=== PATIENT | female | born 2000 | race Caucasian/White ===

== ENCOUNTER 2021-06-27 16:56 | Inpatient (IN) | payer OTHER ==
[~2021-06-27] VITALS: Ht 157.5 cm; Wt 61.2 kg
--- NOTE | 2021-06-27 17:10 | NUR ---
TO ER BED 1, C/O RLQ ABD PAIN +N/V -DIARRHEA STARTED YESTERDAY, AAOX3, BREATHING EVEN AND NON LABORED, CONNECTED TO MONITOR, AWAITING MD LAND
[2021-06-27] MEDS ORDERED: ONDANSETRON HCL/PF 4 MG/2 ML VIAL ONE (17:25)
[2021-06-27] MEDS ORDERED: MORPHINE SULFATE INJ 4 MG/ML DISP.SYRIN ONE (17:26)
[2021-06-27] MEDS ORDERED: ONDANSETRON HCL/PF 4 MG/2 ML VIAL IVP ONE (17:30)
[2021-06-27] MEDS ORDERED: IV NS 0.9% 1,000 ML BAG IV ONE (17:30)
[2021-06-27] MEDS ORDERED: MORPHINE SULFATE INJ 2 MG/ML DISP.SYRIN IV ONE (17:30)
--- NOTE | 2021-06-27 17:32 | NUR ---
SALINE LOCK ESTABLISHED, BLOOD DRAWN AND SENT TO LAB
--- NOTE | 2021-06-27 17:35 | NUR ---
URINE COLLECTED AND SENT TO LAB
[2021-06-27 17:42] LABS: BASOPHILS % (AUTO) 0.3 % (0.0-2.0); EOSINOPHILS % (AUTO) 1.1 % (0.0-6.0); HEMATOCRIT 41 % (33-45); HEMOGLOBIN 13.8 g/dL (11.5-14.8); LYMPHOCYTES # (AUTO) 1.3 K/uL (0.8-4.8); LYMPHOCYTES % (AUTO) 12.9 % (20.0-44.0); MEAN CORPUSCULAR HGB CONC 34 g/dl (31.0-36.0); MEAN CORPUSCULAR VOLUME 90 fL (82-100); MONOCYTES # (AUTO) 0.6 K/uL (0.1-1.30); MONOCYTES % (AUTO) 5.6 % (2.0-12.0); NEUTROPHILS # (AUTO) 7.9 K/uL (1.8-8.9); NEUTROPHILS % (AUTO) 80.1 % (43.0-81.0); PLATELET COUNT (AUTO) 241 K/uL (150-450); RED BLOOD CELL COUNT(AUTO) 4.55 MIL/uL (4.0-5.2); WHITE BLOOD COUNT (AUTO) 9.9 K/uL (4.3-11.0)
[2021-06-27 18:06] LABS: BILIRUBIN,URINE NEGATIVE (NEGATIVE); COLOR,URINE YELLOW (YELLOW); LEUKOCYTE ESTERASE ,URINE MODERATE (NEGATIVE); NITRITE, URINE NEGATIVE (NEGATIVE); PROTEIN,URINE NEGATIVE (NEGATIVE); UGLUCOSE NEGATIVE (NEGATIVE); UROBILINOGEN,URINE 0.2 EU/dL (0.2)
[2021-06-27 18:12] LABS: CREATININE 0.7 mg/dL (0.6-1.3); POTASSIUM 3.5 mmol/L (3.5-5.1)
[2021-06-27 18:18] LABS: ALBUMIN 3.8 g/dL (3.4-5.0); BILIRUBIN,DIRECT 0.1 mg/dL (0.0-0.2); BILIRUBIN,TOTAL 0.4 mg/dL (0.2-1.0); TOTAL PROTEIN, SERUM 7.4 g/dL (6.4-8.2)
[2021-06-27 18:24] LABS: BACTERIA,URINE Few /HPF (None Seen); RBC,URINE 0-2 /HPF (0-2); SQUAMOUS EPITHELIAL CELL,UR Moderate /HPF (None Seen)
[2021-06-27] MEDS ORDERED: METRONIDAZOLE 500MG/ NS 100ML 100 ML IV ONE ×2 (19:00→19:32)
[2021-06-27] MEDS ORDERED: CEFTRIAXONE 2 G in IV D5W 100 ML IV SCH (19:00)
--- NOTE | 2021-06-27 19:00 | NUR ---
DR MOTLEY SHAKE MAKER SURGEON CALLED TAKING TO NEMO SILVA.
--- NOTE | 2021-06-27 19:05 | NUR ---
COVID SWAB DONE AND SENT TO LAB
[2021-06-27] MEDS ORDERED: CEFTRIAXONE 1GM BAG (ER ONLY) 100 ML IV ONE (19:16)
[2021-06-27] MEDS ORDERED: ACETAMINOPHEN 325 MG TABLET PO PRN (20:30)
[2021-06-27] MEDS ORDERED: Z GUARD REMEDY 4 OZ OINT TP PRN (20:30)
[2021-06-27] MEDS ORDERED: MAG HYDROX/AL HYDROX/SIMETH 30 ML UDC PO PRN (20:30)
[2021-06-27] MEDS ORDERED: ZOLPIDEM TARTRATE 5 MG TABLET PO PRN (20:30)
[2021-06-27] MEDS ORDERED: MAGNESIUM HYDROXIDE 30 ML UDC PO PRN (20:30)
--- NOTE | 2021-06-27 20:30 | NUR ---
RECIEVED BED 321-1
--- NOTE | 2021-06-27 21:03 | NUR ---
REPORT GIVEN TO CHRISTY
--- NOTE | 2021-06-27 21:16 | NUR ---
PT TRANSPORTED TO ROOM 306 WITHOUT INCIDENT
[2021-06-27 21:30] VITALS: BP 115/69
--- NOTE | 2021-06-27 21:30 | NUR ---
MS RN NOTES PATIENT ARRIVED ON UNIT, PATIENT AWAKE, A/OX4, AMBULATORY WITH STEADY GAIT; VSS. BREATHING EVEN AND UNLABORED; NO SOB NOTED; TOLERATING ROOM AIR; PATIENT COMPLAINING OF ABDOMINAL DISCOMFORT BUT TOLERABLE; PATIENT VERBALIZE SHE HAS NOT EATEN SINCE 0900 TODAY; PATIENT HAS BEEN NPO ORDERED BY MD; PATIENT HAS R AC #20, INTACT AND PATENT, FLUSHING WELL; NO S/S OF REDNESS OR INFILTRATION NOTED; PATIENT BELONGINGS CHECKED; PATIENT REPORTED ER STAFF MENTIONED POSSIBLE SURGERY TONIGHT OR IN AM; PER PATIENT, DOCTOR DOING PROCEDURE WILL COME AND SPEAK WITH HER BEFORE PROCEDURE IS DONE; WILL AWAIT FOR DR. MOTLEY. SKIN IS INTACT; PATIENT ORIENTED TO STAFF AND UNIT, SAFETY PRECAUTIONS IMPLEMENTED; BED LOCKED IN LOW POSITION; SIDE RAILSX2 UP, CALL LIGHT WITHIN REACH; WILL CONT TO MONITOR
[2021-06-27] MEDS: IV NS 0.9% 1,000 ML IV SCH (22:04)
[2021-06-27] MEDS ORDERED: FAMOTIDINE/PF INJ 20 MG/2 ML VIAL IV ONE (22:13)
[2021-06-27] MEDS ORDERED: HYDROMORPHONE INJ 2 MG/ML DISP.SYRIN ONE (22:13)
[2021-06-27] MEDS ORDERED: MIDAZOLAM HCL 2 MG/2ML VIAL ONE (22:13)
[2021-06-27] MEDS ORDERED: ROCURONIUM BROMIDE 50 MG/5 ML ONE (22:13)
[2021-06-27] MEDS ORDERED: ANESTHESIA TRAY IN PYXIS 1 EA TRAY MC ONE (22:13)
--- NOTE | 2021-06-27 22:41 | NUR ---
MS RN NOTES SPOKE WITH DR. MOTLEY TO OBTAIN CONSENT FOR LAPAROSCOPIC APPENDECTOMY, POSSIBLE OPEN. CONSENTS SIGNED, CHECK LIST DONE, OR PICKED UP PATIENT AND BROUGHT HER DOWN FOR SURGICAL PROCEDURE, WILL AWAIT FOR PATIENT ARRIVAL
[2021-06-27] MEDS ORDERED: LIDOCAINE 1% INJ 50 ML MDV IJ ONE (22:57)
[2021-06-27] MEDS ORDERED: BUPIVACAINE MPF 0.5% W/EPI INJ 30 ML VIAL ONE (22:57)
[2021-06-28] VITALS (7 sets, daily range): BP systolic 99–121; BP diastolic 49–70
--- NOTE | 2021-06-28 00:09 | NUR ---
MS RN NOTES PATIENT STILL IN OR FOR PROCEDURE, UNABLE TO ADMINISTER SCHEDULED ZOZYN AT THIS TIME. WILL AWAIT FOR PATIENT ARRIVAL TO UNIT; CHARGE NURSE IS AWARE
--- NOTE | 2021-06-28 00:50 | NUR ---
MS RN NOTES PATIENT RETURNED TO UNIT, VSS. BREATHING EVEN AND UNLABORED; PATIENT ON 2LPM VIA NC PER PROTOCOL. WILL CONT TO MONITOR; MD ORDERS RENDERED;
--- NOTE | 2021-06-28 01:05 | NUR ---
MS RN NOTES PATIENT TAKEN OFF OXYGEN, PATIENT SATTING 96% ON ROOM AIR, WILL CONT TO MONITOR
[2021-06-28] MEDS: PIPERACILLIN /TAZOBACTAM 3.375 G in IV D5W 50 ML IV SCH ×3 (03:02→12:29)
--- NOTE | 2021-06-28 03:05 | NUR ---
MS RN NOTES PATIENT RECEIVED ZOZYN [id number]. SCAN DID NOT SAVE.
[2021-06-28] MEDS: IV NS 0.9% 1,000 ML IV SCH (05:32)
[2021-06-28] MEDS: MORPHINE SULFATE INJ 2 MG/ML DISP.SYRIN IV PRN ×2 (05:57→14:16)
[2021-06-28] MEDS: ONDANSETRON HCL/PF 4 MG/2 ML VIAL IVP PRN ×2 (05:57→14:19)
[2021-06-28 06:47] LABS: BASOPHILS % (AUTO) 0.1 % (0.0-2.0); HEMATOCRIT 38 % (33-45); HEMOGLOBIN 12.8 g/dL (11.5-14.8); LYMPHOCYTES # (AUTO) 0.5 K/uL (0.8-4.8); LYMPHOCYTES % (AUTO) 4.7 % (20.0-44.0); MEAN CORPUSCULAR HGB CONC 34 g/dl (31.0-36.0); MEAN CORPUSCULAR VOLUME 91 fL (82-100); MONOCYTES # (AUTO) 0.3 K/uL (0.1-1.30); MONOCYTES % (AUTO) 2.5 % (2.0-12.0); NEUTROPHILS # (AUTO) 10.4 K/uL (1.8-8.9); NEUTROPHILS % (AUTO) 92.7 % (43.0-81.0); PLATELET COUNT (AUTO) 228 K/uL (150-450); WHITE BLOOD COUNT (AUTO) 11.2 K/uL (4.3-11.0)
--- NOTE | 2021-06-28 06:49 | NUR ---
MS RN CLOSING NOTES PATIENT IN BED RESTING, A/OX4, AMBULATORY WITH STEADY GAIT; VSS. BREATHING EVEN AND UNLABORED; NO SOB NOTED; TOLERATING ROOM AIR; PATIENT COMPLAINING OF ABDOMINAL DISCOMFORT BUT TOLERABLE; PATIENT VERBALIZE SHE HAS NOT EATEN SINCE 0900 TODAY; PATIENT HAS BEEN NPO ORDERED BY MD; PATIENT HAS R AC #20, INTACT AND PATENT, FLUSHING WELL; NO S/S OF REDNESS OR INFILTRATION NOTED; PATIENT BELONGINGS CHECKED; PATIENT REPORTED ER STAFF MENTIONED POSSIBLE SURGERY TONIGHT OR IN AM; PER PATIENT, DOCTOR DOING PROCEDURE WILL COME AND SPEAK WITH HER BEFORE PROCEDURE IS DONE; WILL AWAIT FOR DR. MOTLEY. SKIN IS INTACT; PATIENT ORIENTED TO STAFF AND UNIT, SAFETY PRECAUTIONS IMPLEMENTED; BED LOCKED IN LOW POSITION; SIDE RAILSX2 UP, CALL LIGHT WITHIN REACH; WILL CONT TO MONITOR Addendum: 06/28/21 at 0651 by JIMI HAHN RN PATIENT S/P LAPAROSCOPIC APPENDECTOMY. PATIENT STABLE. WILL ENDORSE OLIVIA TO ONCOMING SHIFT
[2021-06-28 06:56] LABS: CALCIUM, SERUM 8.8 mg/dL (8.5-10.1); CREATININE 0.8 mg/dL (0.6-1.3); MAGNESIUM 2.2 mg/dL (1.8-2.4); PHOSPHORUS 2.7 mg/dL (2.5-4.9); POTASSIUM 4.4 mmol/L (3.5-5.1)
[2021-06-28] MEDS ORDERED: SERT100T12 PO (07:35)
--- NOTE | 2021-06-28 07:45 | NUR ---
RN OPENING NOTE PATIENT IN BED RESTING SLEEPING, A/O X4, NO S/S OF PAIN NOTED AT THIS TIME. ON ROOM AIR, NO DISTRESS OR SHORTNESS OF BREATH NOTED. IV ACCESS R AC #20G - NS @ 100ML/HR, INTACT, PATENT AND FLUSHING WELL. FALL AND SAFETY MEASURES IN PLACE, BED ALARM ON. BED IN LOW AND LOCK POSITION, CALL LIGHT AND TABLE WITHIN EASY REACH, SIDE RAILS UP X2. WILL CONTINUE TO MONITOR.
[2021-06-28] MEDS ORDERED: KETOROLAC TROMETHAMINE INJ 30 MG/ML VIAL IV ONE (13:28)
[2021-06-28] MEDS ORDERED: LIDOCAINE HCL/PF 2 % 5ML SDV 5 ML VIAL IV ONE (13:28)
[2021-06-28] MEDS ORDERED: NEOSTIGMINE METHYLSULFATE INJ 1 MG/ML VIAL IV ONE (13:28)
[2021-06-28] MEDS ORDERED: ONDANSETRON HCL/PF 4 MG/2 ML VIAL IVP ONE (13:28)
[2021-06-28] MEDS ORDERED: GLYCOPYRROLATE 0.2 MG/ML VIAL IV ONE (13:28)
[2021-06-28] MEDS ORDERED: SUCCINYLCHOLINE CHLORIDE 20 MG/ML VIAL IV ONE (13:28)
[2021-06-28] MEDS ORDERED: PROPOFOL 200 MG/20 ML VIAL IV ONE (13:28)
[2021-06-28] MEDS ORDERED: DEXAMETHASONE SOD PHOSPHATE 4 MG/ML VIAL IV ONE (13:28)
[2021-06-28] MEDS ORDERED: IV NS 0.9% 1,000 ML BAG IV ONE (13:28)
--- NOTE | 2021-06-28 17:40 | NUR ---
PRIVACY SPECIALIST NOTE PATIENT DISCHARGE IN STABLE MEDICAL CONDITION. A/O X4. V/S TAKEN, STABLE AND RECORDED. NO IV ACCESS. SKIN ASSESSMENT DONE, SKIN INTACT EXCEPT FOR SURGICAL SITES. NAME ARM BAND REMOVED. ALL BELONGINGS CHECKED AND SIGNED. HEALTH TEACHING AND DISCHARGE INSTRUCTIONS GIVEN AND VERBALIZED UNDERSTANDING. PATIENT LEFT AMBULATING WITH NO SIGNS OF DISTRESS, ACCOMPANIED BY RN TO THE LOBBY. PATIENT LEFT HOME WITH ROOMMATE. CHARGE NURSE AWARE OF DISCHARGE.
== END 2021-06-28 16:55 | disposition home or self-care (01) | DRG 342 ==
LOC: ER 17:05 → MED 20:34
PROVIDERS: ADMIT Family Medicine; ATTEND Internal Medicine
PROC: 0DTJ4ZZ Resection of Appendix, Percutaneous Endoscopic Approach (ICD-10-PCS; principal; 2021-06-27)
DX: K35.80 Unspecified acute appendicitis (principal); N39.0 Urinary tract infection, site not specified; Z20.822 Contact with and (suspected) exposure to COVID-19; D27.0 Benign neoplasm of right ovary; Z79.899 Other long term (current) drug therapy; K42.9 Umbilical hernia without obstruction or gangrene
CPT/HCPCS: 36415; 71045-TC; 76856-TC; 80048-TC; 80076-TC; 81001; 83690-TC; 83735-TC; 84100-TC; 84703-TC; 85025-TC; 85730-TC; 87081-TC; 87086-TC; 88304-TC; C9803; G0378; J0330; J0696; J1100; J1170; J1885; J2250; J2270; J2405; J2543; J2704; J3490; J7030; J7060